=== PATIENT | male | born 1945 | race Caucasian/White ===

== ENCOUNTER → 2024-05-06 10:02 | Outpatient (REF) | payer BC, SELFPAY ==
[2024-05-06 10:39] VITALS: BP 156/102; BP_SYST 82
[2024-05-06] MEDS: ANCEF 10 IV (11:02)
[2024-05-06 11:43] VITALS: BP 139/90
== END ==
LOC: RADI 10:02
PROVIDERS: ATTENDING PHYSICIAN Specialist; FAMILY PHYSICIAN Internal Medicine
DX: N13.1 Hydronephrosis with ureteral stricture, not elsewhere classified (principal)
CPT/HCPCS: 50431; 50435; C1729; C1769